=== PATIENT | male | born 1955 | race Caucasian/White ===

== ENCOUNTER → 2022-06-12 12:05 | Outpatient (CLI) | payer MEDICARE, SELFPAY ==
[2022-06-12 13:31] LABS: Basophils # 0.2 K/mm3 (0-0.2); Eosinophils # 0.1 K/mm3 (0.0-0.4); Eosinophils % 0.4 % (0.1-12.0); Hematocrit 46.6 % (42.0-52.0); Hemoglobin 15.7 g/dL (14.1-18.0); Lymphocytes # 19.8 K/mm3 (0.7-4.5); Lymphocytes % 77.6 % (10-50); Mean Corpuscular HGB Conc 33.6 g/dL (31.8-35.4); Mean Corpuscular Hemoglobin 29.8 pg (27.0-31.2); Mean Corpuscular Volume 88.5 fl (80-94); Mean Platelet Volume 8.1 fl (7.4-10.4); Monocytes # 0.4 K/mm3 (0.1-1.0); Monocytes % 1.6 % (1.7-9.3); Neutrophils % 19.4 % (37.0-80.0); Platelet Count 210 K/mm3 (142-424); Red Blood Count 5.27 M/mm3 (4.60-6.20)
[2022-06-12 13:34] LABS: MANUAL DIFFERENTIAL MANUAL DIFFERENTIAL (MANUAL DIFF)
[2022-06-12 13:56] LABS: White Blood Count 25.8 K/mm3 (4.8-10.8)
[2022-06-12 15:05] LABS: Lymphocytes % 75 % (10-50); Monocytes % 3 % (2-9); Neutrophils % 22 % (42-76); Total Cells Counted 100
[2022-06-12 15:06] LABS: RBC Morphology Normal
[2022-06-12 15:07] LABS: Platelet Estimate Normal
[2022-06-14 12:20] LABS: Peripheral Smear Review Scanned Result
== END ==
PROVIDERS: Nurse Practitioner Family
DX: D72.829 Elevated white blood cell count, unspecified (principal)
CPT/HCPCS: 36415; 85007; 85025

== ENCOUNTER 2023-08-27 13:50 | Emergency (ER) | payer MEDICARE, SELFPAY ==
[2023-08-27 13:51] VITALS: BP 146/90; PULSE 104; RESP 20; TEMP 37.5; O2SAT 99; BMI 41.3
[2023-08-27 13:58] VITALS: BP 146/90; PULSE 105; O2SAT 96
[2023-08-27 14:01] VITALS: BP 140/92; PULSE 107; O2SAT 96
--- NOTE | 2023-08-27 14:21 | ECG_ITS ---
APPROVED REPORT Exam: Resting ECG HR:98 bpm ECG Measurements Heart Rate 98 AXES TX 145 P 52 QRSd 83 QRS 49 QT 299 T 74 QTc 355 Conclusion SINUS RHYTHM WITH OCCASIONAL SUPRAVENTRICULAR PREMATURE COMPLEXES NONSPECIFIC T-WAVE ABNORMALITY BORDERLINE ECG Electronically signed by : SUHAIL MARSH, 08/27/2023 15:18:14
--- NOTE | 2023-08-27 14:23 | ED_ITS ---
Discharge Plan Disposition Patient Disposition: Home, Self-Care Prescriptions Prescriptions: New doxycycline hyclate 100 mg capsule 100 mg PO BID 10 Days Qty: 20 0RF Referrals Follow up/Referrals: Provider,Referral, [Primary Care Provider] - See instructions Activity Restrictions/Add. Instructions Additional Instructions/Restrictions: At this time it was felt you are safe to be discharged home. If new or worsening symptoms please do not hesitate to return the emergency department. Please take your antibiotics as prescribed and follow-up with your family doctor within 1 week for repeat labs. Your platelets (the way of blood clots) as well as your sodium were little bit low today, not dangerously low. Clinical Impressions Clinical Impression: Acute Lyme disease, Thrombocytopenia, Hyponatremia Instructions Patient Instructions: DI for Skin Abscess Discharge ED Provider: Huy Venegas General Adult HPI <Carlos Alberto Dupont MD - Last Filed: 08/27/23 15:10> General Chief complaint: Skin/Abscess/Foreign Body Stated complaint: fever, body aches, possible spider bite on rt leg Time Seen by Provider: 08/27/23 14:01 Mode of Arrival: Ambulatory Source of Information: Patient and Spouse Limitations: No Limitations Description of Symptoms (Recalled from ER Triage Doc. by RN): POSSIBLE TICK BITE,FEVER,BODY ACHES History of Present Illness HPI narrative: Patient is a 68-year-old male with chronic leukemia who presents emergency department for multiple complaints after a tick bite. Patient removed a tick from his right lateral thigh which was attached for an unknown duration approximately a week ago. He has had a target-like rash over his right lateral thigh since, diffuse myalgias, arthralgias, holocranial headache, fever Tmax 103 at home causing her to present here for continued evaluation. No chest pain reported. Related Data Previous Rx's Medication Instructions Recorded doxycycline hyclate 100 mg capsule 100 mg PO BID Lyme Disease 10 days 08/27/23 #20 caps Allergies Allergy/AdvReac Type Severity Reaction Status Date / Time Penicillins Allergy Verified 08/27/23 14:06 [facility] <Carlos Alberto Dupont MD - Last Filed: 08/27/23 15:10> [facility] Disclaimer: The information contained in this section may have been updated after the patient was seen, as this information can be updated by other users. Social History (Updated 08/27/23 @ 15:10 by Carlos Alberto Dupont MD) Smoking Status: Never smoker alcohol intake: never current occupational status: other Travel in the last 8 weeks: None <Carlos Alberto Dupont MD - Last Filed: 08/27/23 15:10> ROS Obtained: Yes Systems reviewed as appropriate & no additional complaints except as documented Physical Exam <Carlos Alberto Dupont MD - Last Filed: 08/27/23 15:10> General General appearance: alert and in no apparent distress Head Head exam: atraumatic and normocephalic Eye Eye exam: Present PERRL ENT ENT exam: Present mucous membranes moist Neck Neck exam: Present normal inspection Chest Chest inspection: Present normal inspection and symmetric chest wall rise Respiratory Respiratory exam: Present normal lung sounds bilaterally; Absent respiratory distress Cardiovascular Cardiovascular exam: Present regular rate and normal rhythm Abdominal Exam Abdominal exam: Present soft; Absent tenderness Extremities Exam Extremities exam: Present other (Annular rash right lateral thigh) Neurological Exam Neurological exam: Present alert Psychiatric Psychiatric exam: Present normal affect Skin Skin exam: Present warm and dry Medical Decision Making <Carlos Alberto Dupont MD - Last Filed: 08/27/23 15:10> Dylan Inquiry Pt receiving controlled substance: No Vital Signs: 08/27/23 13:51 08/27/23 13:58 08/27/23 14:01 Temperature 99.5 F Temperature Source Oral Pulse Rate 105 H 107 H Pulse Rate [Right] 104 H Respiratory Rate 20 Blood Pressure 146/90 H 140/92 H Blood Pressure [Right Arm] 146/90 H Blood Pressure Mean [Right Arm] 108 02 Sat by Pulse Oximetry 99 96 96 Lab Data Lab Results 08/27/23 14:07: WBC 13.1 H, RBC 3.99 L, Hgb 12.4 L, Hct 37.0 L, MCV 92.8, MCH 31.0, MCHC 33.4, RDW 16.0, Plt Count 104 L, MPV 8.8, Neut % (Auto) 13.5 L, Lymph % (Auto) 84.9 H, Henderson % (Auto) 0.6 L, Eos % (Auto) 0.1, Baso % (Auto) 0.9, Neut # (Auto) 1.8, Lymph # (Auto) 11.1 H, Henderson # (Auto) 0.1, Eos # (Auto) 0.0, Baso # (Auto) 0.1, Total Counted 100, Neutrophils % (Manual) 7 L, Band Neutrophils % 2.0, Lymphocytes % (Manual) 78 H, Atypical Lymphs % 8.0, Monocytes % (Manual) 3, Blast Cells % 2.0, Platelet Estimate Moderate decrease, RBC Morphology Normal, S odium 133 L, Potassium 4.2, Chloride 101, Carbon Dioxide 29, Anion Gap 7.2, BUN 17, Creatinine 0.90, Estimated Creat Clear 72, Estimated GFR 84, Est GFR ( Amer) 102, Glucose 123 H, Calcium 8.7, Total Bilirubin 0.6, AST 65 H, ALT 63, Alkaline Phosphatase 52, Total Creatine Kinase 109, Troponin I 0.02, Total Protein 6.6, Albumin 3.8, Globulin 2.8, Albumin/Globulin Ratio 1.4 08/27/23 14:07 08/27/23 14:07 Orders (Tests/Meds): ED MEDICATIONS Discontinued Medications Generic Name Dose Route Start Last Admin Trade Name Freq PRN Reason Stop Dose Admin Hydrocodone Bitart/Acetaminophen 1 tab 08/27/23 14:19 08/27/23 14:30 Apap/Hydrocodone 325mg/7.5mg Tab PO 08/27/23 14:20 1 tab ONCE ONE Administration Doxycycline Hyclate 100 mg/ 250 mls @ 166.667 mls/hr 08/27/23 14:17 08/27/23 14:30 Sodium Chloride IV 08/27/23 14:18 166.667 mls/hr ONCE ONE Administration Lactated Ringer's 1,000 mls @ 999 mls/hr 08/27/23 14:19 08/27/23 14:30 Lactated Ringer's 1000 Ml Bag IV 08/27/23 15:19 999 mls/hr .Q1H1M ONE Administration Ketorolac Tromethamine 30 mg 08/27/23 14:19 08/27/23 14:30 Ketorolac 30mg/Ml Vial IV 08/27/23 14:20 30 mg ONCE ONE Administration ORDERS Category Date Time Status CBC w/Auto Diff [Complete Blood Count Auto Diff] Stat Lab 08/27/23 14:07 Results CK [Creatine Kinase] Stat Lab 08/27/23 14:07 Completed CMP [Comprehensive Metabolic Panel] Stat Lab 08/27/23 14:07 Completed Lyme Ab, Modified 2-Tier Stat Lab 08/27/23 14:07 Received Lyme B. burgdorferi PCR Blood Stat Lab 08/27/23 14:07 Received Peripheral Smear Review Stat Lab 08/27/23 14:07 Results Trop I [Troponin I] Stat Lab 08/27/23 14:07 Completed Troponin I Q3H Lab 08/27/23 18:15 Ordered Troponin I Q3H Lab 08/27/23 21:15 Ordered ECG Data Tracing #1: Independently interpreted by me rate is 98, rhythm is irregular, sinus arrhythmia, QTc 355, no ST elevation in anatomical contiguous leads, no high degree AV block. Medical Decision Narrative: In summary patient is a 68-year-old male with a history of chronic leukemia presents emergency department for evaluation of myalgias, arthralgias, headache in the setting of tick bite. Patient is annular rash and clinical symptoms are consistent with Lyme disease. Workup will be conducted with hematologic labs, Lyme disease and tickborne illness send outs will be conducted. Patient will be empirically treated with doxycycline. Crystalloid bolus will be administered. EKG will be obtained. CT imaging of the head was considered however he has nonfocal neurologic exam and Lyme disease easily explains his holocranial headache therefore will be deferred. Initial interventions also include Toradol, home dose [place]. Initial workup reviewed by me, patient actually has improved leukocytosis in the setting of his leukemia, thrombocytopenia platelet count 104 down from 210 that is nonactionable, no EDI or critical electrolyte abnormalities, mild hyponatremia. Troponin repeat evaluation pending at time of transfer of care to the oncoming physician, Dr. Venegas. <Huy Venegas MD - Last Filed: 08/27/23 16:14> Vital Signs: 08/27/23 13:51 08/27/23 13:58 08/27/23 14:01 Temperature 99.5 F Temperature Source Oral Pulse Rate 105 H 107 H Pulse Rate [Right] 104 H Respiratory Rate 20 Blood Pressure 146/90 H 140/92 H Blood Pressure [Right Arm] 146/90 H Blood Pressure Mean [Right Arm] 108 02 Sat by Pulse Oximetry 99 96 96 Lab Data Lab Results 08/27/23 14:07: WBC 13.1 H, RBC 3.99 L, Hgb 12.4 L, Hct 37.0 L, MCV 92.8, MCH 31.0, MCHC 33.4, RDW 16.0, Plt Count 104 L, MPV 8.8, Neut % (Auto) 13.5 L, Lymph % (Auto) 84.9 H, Henderson % (Auto) 0.6 L, Eos % (Auto) 0.1, Baso % (Auto) 0.9, Neut # (Auto) 1.8, Lymph # (Auto) 11.1 H, Henderson # (Auto) 0.1, Eos # (Auto) 0.0, Baso # (Auto) 0.1, Total Counted 100, Neutrophils % (Manual) 7 L, Band Neutrophils % 2.0, Lymphocytes % (Manual) 78 H, Atypical Lymphs % 8.0, Monocytes % (Manual) 3, Blast Cells % 2.0, Platelet Estimate Moderate decrease, RBC Morphology Normal, S odium 133 L, Potassium 4.2, Chloride 101, Carbon Dioxide 29, Anion Gap 7.2, BUN 17, Creatinine 0.90, Estimated Creat Clear 72, Estimated GFR 84, Est GFR ( Amer) 102, Glucose 123 H, Calcium 8.7, Total Bilirubin 0.6, AST 65 H, ALT 63, Alkaline Phosphatase 52, Total Creatine Kinase 109, Troponin I 0.02, Total Protein 6.6, Albumin 3.8, Globulin 2.8, Albumin/Globulin Ratio 1.4 Orders (Tests/Meds): ED MEDICATIONS Discontinued Medications Generic Name Dose Route Start Last Admin Trade Name Freq PRN Reason Stop Dose Admin Hydrocodone Bitart/Acetaminophen 1 tab 08/27/23 14:19 08/27/23 14:30 Apap/Hydrocodone 325mg/7.5mg Tab PO 08/27/23 14:20 1 tab ONCE ONE Administration Doxycycline Hyclate 100 mg/ 250 mls @ 166.667 mls/hr 08/27/23 14:17 08/27/23 14:30 Sodium Chloride IV 08/27/23 14:18 166.667 mls/hr ONCE ONE Administration Lactated Ringer's 1,000 mls @ 999 mls/hr 08/27/23 14:19 08/27/23 14:30 Lactated Ringer's 1000 Ml Bag IV 08/27/23 15:19 999 mls/hr .Q1H1M ONE Administration Ketorolac Tromethamine 30 mg 08/27/23 14:19 08/27/23 14:30 Ketorolac 30mg/Ml Vial IV 08/27/23 14:20 30 mg ONCE ONE Administration ORDERS Category Date Time Status CBC w/Auto Diff [Complete Blood Count Auto Diff] Stat Lab 08/27/23 14:07 Results CK [Creatine Kinase] Stat Lab 08/27/23 14:07 Completed CMP [Comprehensive Metabolic Panel] Stat Lab 08/27/23 14:07 Completed Lyme Ab, Modified 2-Tier Stat Lab 08/27/23 14:07 Received Lyme B. burgdorferi PCR Blood Stat Lab 08/27/23 14:07 Received Peripheral Smear Review Stat Lab 08/27/23 14:07 Results Trop I [Troponin I] Stat Lab 08/27/23 14:07 Completed Troponin I Q3H Lab 08/27/23 18:15 Ordered Troponin I Q3H Lab 08/27/23 21:15 Ordered Medical Decision Narrative: In summary patient is a 68-year-old male with a history of chronic leukemia presents emergency department for evaluation of myalgias, arthralgias, headache in the setting of tick bite. Patient is annular rash and clinical symptoms are consistent with Lyme disease. Workup will be conducted with hematologic labs, Lyme disease and tickborne illness send outs will be conducted. Patient will be empirically treated with doxycycline. Crystalloid bolus will be administered. EKG will be obtained. CT imaging of the head was considered however he has nonfocal neurologic exam and Lyme disease easily explains his holocranial headache therefore will be deferred. Initial interventions also include Toradol, home dose [place]. Initial workup reviewed by me, patient actually has improved leukocytosis in the setting of his leukemia, thrombocytopenia platelet count 104 down from 210 that is nonactionable, no EDI or critical electrolyte abnormalities, mild hyponatremia. Troponin repeat evaluation pending at time of transfer of care to the oncoming physician, Dr. Venegas. Rubi: I assumed primary responsibility for this patient after signout from previous physician. Independent of additional workup demonstrates pancytopenia down from patient's normal, relative lymphocytosis consistent with tickborne disease. Patient's electrolytes consistent with mild hyponatremia, but otherwise normal. Troponin negative. LFTs normal. On reevaluation, patient tolerating p.o. intake, states he feels better, doxycycline has been administered. Recommended that he follow-up with his family doctor regarding this visit and need for repeat labs including CBC and chemistry. Because patient at baseline without signs or symptoms of clinical decompensation, deemed appropriate for discharge. Results were relayed to patient who voiced understanding and were agreeable to outpatient management and follow up. I discussed my clinical impression with patient and answered all questions. At this time, the evidence for any other entities in the differential is insufficient to warrant any further testing or ED observation. This was explained as well. Advisory was given that persistent or worsening symptoms require further evaluation. I confirmed the understanding of this discussion. Critical Care <Carlos Alberto Dupont MD - Last Filed: 08/27/23 15:10> Critical Care Time Critical Care Time: No
[2023-08-27] MEDS: LACTATED RINGERS 1000ML 1,000 ML 999 ML IV (14:30)
[2023-08-27] MEDS: DOXYCYCLINE HYCLATE 100 MG in 0.9 % SODIUM CHLORIDE 250 ML 166.667 MG IV (14:30)
[2023-08-27] MEDS: APAP/HYDROCODONE 325MG/7.5MG TAB 1 TAB PO (14:30)
[2023-08-27] MEDS: KETOROLAC 30MG/ML VIAL 30 MG IV (14:30)
[2023-08-27 14:33] LABS: Chloride 101 mmol/L (98-107)
[2023-08-27 14:34] LABS: Potassium 4.2 mmoL/L (3.5-5.1); Sodium 133 mmol/L (136-145)
[2023-08-27 14:36] LABS: Alanine Aminotransferase 63 U/L (12-78); Aspartate Amino Transferase 65 U/L (17-59); Bilirubin,Total 0.6 mg/dl (0.2-1.3); Blood Urea Nitrogen 17 mg/dl (9-20); Creatinine Clearance Estimated 72 mL/min (50-200); Estimated Glomerular Filt Rate 84 ml/min (>60); GFR (African American) 102 ML/MIN (>60)
[2023-08-27 14:37] LABS: Albumin Level 3.8 g/dl (3.5-5.0); Albumin/Globulin Ratio 1.4 (1.1-1.8); Alkaline Phosphatase 52 U/L (38-126); Anion Gap 7.2 mEq/L (5-15); Calcium 8.7 mg/dl (8.4-10.2); Carbon Dioxide 29 mmol/L (22.0-30.0); Creatine Kinase 109 U/L (55-170); Globulin 2.8 g/dL (1.3-3.2); Glucose 123 mg/dl (74-100); Total Protein,Serum 6.6 g/dl (6.3-8.2)
[2023-08-27 14:44] LABS: Basophils # 0.1 K/mm3 (0-0.2); Basophils % 0.9 % (0.1-2.0); Eosinophils % 0.1 % (0.1-12.0); Hemoglobin 12.4 g/dL (14.1-18.0); Lymphocytes # 11.1 K/mm3 (0.7-4.5); Lymphocytes % 84.9 % (10-50); Mean Corpuscular HGB Conc 33.4 g/dL (31.8-35.4); Mean Corpuscular Volume 92.8 fl (80-94); Mean Platelet Volume 8.8 fl (7.4-10.4); Monocytes # 0.1 K/mm3 (0.1-1.0); Monocytes % 0.6 % (1.7-9.3); Neutrophils # 1.8 K/mm3 (1.8-7.8); Platelet Count 104 K/mm3 (142-424); Red Blood Count 3.99 M/mm3 (4.60-6.20); White Blood Count 13.1 K/mm3 (4.8-10.8)
[2023-08-27 14:51] LABS: MANUAL DIFFERENTIAL MANUAL DIFFERENTIAL (MANUAL DIFF); Neutrophils % 13.5 % (37.0-80.0)
[2023-08-27 15:16] LABS: Lymphocytes % 78 % (10-50); Monocytes % 3 % (2-9); Neutrophils % 7 % (42-76); Total Cells Counted 100
[2023-08-27 15:17] LABS: Platelet Estimate Moderate Decrease; RBC Morphology Normal
[2023-08-27 15:27] LABS: Troponin I 0.02 ng/ml (0.00-0.034)
--- NOTE | 2023-08-27 16:01 | PC.NURSE ---
DR MORFIN AT BEDSIDE
[2023-08-27 16:19] VITALS: BP 140/92; PULSE 107; RESP 16; TEMP 37.5; O2SAT 96
[2023-08-29 11:58] LABS: Lyme Ab CIA Negative (Negative)
[2023-08-29 14:26] LABS: Peripheral Smear Review Scanned Result
[2023-09-01 10:13] LABS: Lyme B. burgdorferi PCR Blood Negative (Negative)
[2023-09-02 08:30] LABS: Miscellaneous Test SCANNED IMAGE
== END 2023-08-27 16:20 | disposition home or self-care (01) ==
PROVIDERS: Emergency Medicine; Emergency Provider Emergency Medicine
DX: A69.20 Lyme disease, unspecified (principal); E87.1 Hypo-osmolality and hyponatremia; D69.6 Thrombocytopenia, unspecified
CPT/HCPCS: 80053; 82550; 84484; 85007; 85025; 85027; 85060; 87476; 93005; 96361; 96374; 96375; 99284; J1885; J7120

== ENCOUNTER 2024-01-18 11:42 | Outpatient (CLI) | payer MEDICARE, SELFPAY ==
[2024-01-18 12:34] LABS: Chloride 104 mmol/L (98-107); Sodium 137 mmol/L (136-145)
[2024-01-18 12:35] LABS: Potassium 4.8 mmoL/L (3.5-5.1)
[2024-01-18 12:38] LABS: Anion Gap 11.8 mEq/L (5-15); Blood Urea Nitrogen 15 mg/dl (9-20); Carbon Dioxide 26 mmol/L (22.0-30.0); Estimated Glomerular Filt Rate 96 ml/min (>60); GFR (African American) 117 ML/MIN (>60); Glucose 94 mg/dl (74-100)
== END 2024-01-18 23:59 | disposition home or self-care (01) ==
PROVIDERS: Visit Provider Internal Medicine
DX: E87.5 Hyperkalemia (principal)
CPT/HCPCS: 36415; 80048

== ENCOUNTER 2024-09-09 14:07 | Outpatient (CLI) | payer MEDICARE, SELFPAY ==
[2024-09-09 15:07] LABS: Hematocrit 33.9 % (42.0-52.0); Hemoglobin 10.3 g/dL (14.1-18.0); Immature Granulocytes % 0.1 %; Mean Corpuscular HGB Conc 30.4 g/dL (31.8-35.4); Mean Corpuscular Hemoglobin 30.0 pg (27.0-31.2); Mean Corpuscular Volume 98.8 fl (80-94); Nucleated Red Blood Cells % 0 %; Platelet Count 108 K/mm3 (142-424); Red Blood Count 3.43 M/mm3 (4.60-6.20); Red Cell Distribution Width-SD 64.4 fL
[2024-09-09 15:20] LABS: White Blood Count 56.0 K/mm3 (4.8-10.8)
[2024-09-09 15:57] LABS: Alanine Aminotransferase 15 U/L (12-78); Albumin Level 4.0 g/dl (3.5-5.0); Albumin/Globulin Ratio 2.2 (1.1-1.8); Alkaline Phosphatase 59 U/L (38-126); Anion Gap 10.0 mEq/L (5-15); Aspartate Amino Transferase 17 U/L (17-59); Bilirubin,Total 0.4 mg/dl (0.2-1.3); Blood Urea Nitrogen 16 mg/dl (9-20); Calcium 8.9 mg/dl (8.4-10.2); Carbon Dioxide 28 mmol/L (22.0-30.0); Chloride 105 mmol/L (98-107); Creatinine,Serum 0.90 mg/dl (0.66-1.25); Estimated Glomerular Filt Rate 84 ml/min (>60); GFR (African American) 102 ML/MIN (>60); Globulin 1.8 g/dL (1.3-3.2); Glucose 97 mg/dl (74-100); Potassium 4.0 mmoL/L (3.5-5.1); Sodium 139 mmol/L (136-145); Total Protein,Serum 5.8 g/dl (6.3-8.2)
[2024-09-09 16:55] LABS: Total Cells Counted 100
[2024-09-09 16:58] LABS: Hypochromasia 2+; Stomatocytes 1+
== END 2024-09-09 23:59 | disposition home or self-care (01) ==
LOC: LAB 14:13
PROVIDERS: Visit Provider Internal Medicine
DX: C91.10 Chronic lymphocytic leukemia of B-cell type not having achieved remission (principal)
CPT/HCPCS: 36415; 80053; 83615; 85007; 85025; 85027

== ENCOUNTER 2024-10-19 16:31 | Outpatient (CLI) | payer MEDICARE, SELFPAY ==
--- OUTSIDE RECORDS SUMMARY | 2024-10-19 16:37 | XMS_ITS | Patient Health Record ---
Author Organization [facility] Address [address] [place] [address] [address] [place] [address] Care Team Providers Care Sample Dye Mixer Name Role Phone Hailee Rios Primary Care Provider Allergies Allergen (clinical drug ingredient) Drug/Non Drug Allergy documented on EMR Reaction Allergy Type Onset Date Status Penicillin rash Drug Allergy Active Reason For Referral No Information Medications Medication SIG (Take, Route, Frequency, Duration) Notes Start Date End Date Status Vitamin D (Ergocalciferol) 1.25 MG (14822 UT) 1 capsule Orally once a week; Duration: 90 days Active Flomax 0.4 MG 1 capsule Orally Onc e a day; Duration: 90 days 06/12/2022 Active traZODone HCl 100 MG 1 tablet Orally Onc e a day; Duration: 90 days Active Losartan Potassium 100 MG TAKE 1 TABLET BY MOUTH ONCE DAILY FOR BLOOD PRESSURE AND/OR HEART Orally Once a day; Duration: 90 days Active CeleXA 20 MG TAKE ONE TABLET BY M OUTH EVERY DAY Orally Once a day; Duration: 90 days Active Norvasc 10 MG TAKE 1 TABLET BY SOL TH ONCE DAILY FOR BLOOD PRESSURE AND/OR HEART Orally Once a day; Duration: 90 days Active Trelegy Ellipta 100-62.5-25 MCG/INH 1 puff Inhalation Once a day 01/24/2020 Active Proctofoam 1 % 1application Rectal bid Active Triamcinolone Acetonide 40 MG/ML 1 ml Injection Once a day; Duration: 1 days Active Potassium Chloride ER 20 MEQ 1 tablet with food Orally Once a day; Duration: 7 days 10/03/2022 Active Ketorolac Tromethamine 60 MG/2ML 2 ml Intramuscular once; Duration: 1 days Active Lasix 40 MG 1 tablet take with 2 0 meq KCL daily x 7 days Orally Once a day; Duration: 7 days 10/03/2022 Active Diclofenac Sodium 1 % as directed Data Technician ally on knees and elbows prn Four times a day; Duration: 30 days 10/03/2022 Active Meloxicam 7.5 MG 1 tablet Orally Once a day; Duration: 30 day(s) 10/03/2022 Active Tylenol 1 tab Oral q 4-6 hrs prn Active Vitamin D (Ergocalciferol) 1.25 MG (69247 UT) TAKE ONE CAPSULE BY MOUTH ONCE A WEEK Orally weekly; Duration: 84 days Active Immunizations Vaccine Route Administration Date Status Comme nts Afluria ^4 IM Intramuscular 01/23/2020 Administered FLU AD 65+ IM Intramuscular 12/20/2021 Administered Fluzone IM Intramuscular 02/14/2021 Administered Problems Problem Type SNOMED Code ICD Code Onset Dates Problem Status W/U Status Risk Notes Problem Leukocytosis (400894144) Elevated white blood cell count, unspecified (D72.829) Active confirmed Problem Vitamin D deficiency (90833946) Vitamin D deficiency, unspecified (E55.9) Active confirmed Problem Hyperlipidemia (05928736) Hyperlipidemia, unspecified (E78.5) Active confirmed Problem Essential hypertension (10957586) Essential (primary) hypertension (I10) Active confirmed Problem Allergic rhinitis (23052522) Allergic rhinitis, unspecified (J30.9) Active confirmed Problem Chronic obstructive pulmonary disease (29581316) Chronic obstructive pulmonary disease, unspecified (J44.9) Active confirmed Problem Somnolence (10393852) Somnolence (R40.0) Active confirmed Problem Anxiety (05887643) Anxiety (F41.9) Active confi rmed Problem Leukocytosis (312231143) Leukocytosis, unspecified type (D72.829) Active confirmed Plan Of Treatment Pending Test Test Name Order Date Vitamin B12 10/02/2022 Vitamin B12 07/01/2022 Lipids, Total, Serum 05/04/2015 Lipids, Total, Serum 02/12/2015 Lipids, Total, Serum 06/17/2016 Lipids, Total, Serum 06/09/2018 Lipids, Total, Serum 02/18/2019 Lipids, Total, Serum 10/14/2016 Lipid Panel 10/02/2022 Lipid Panel 07/01/2022 Comp. Metabolic Panel (14) 12/20/2021 Liver Function Test (LFT) 08/24/2017 Liver Function Test (LFT) 02/12/2015 Liver Function Test (LFT) 05/04/2015 CBC With Differential/Platelet 5 CBC With Differential/Platelet 0 TSH+Free T4 10/02/2022 TSH+Free T4 07/01/2022 Lipid Panel 12/16/2019 Comp. Metabolic Panel (14) 12/16/2019 PSA Total+ Free 12/16/2019 Basic Metabolic Panel (7) 11/01/2014 Basic Metabolic Panel (7) 02/12/2015 Basic Metabolic Panel (7) 05/04/2015 Thyroid Peroxidase (TPO) Ab 10/02/2022 Peripheral Smear 06/11/2022 COMP Metabolic Panel 02/18/2019 COMP Metabolic Panel 08/24/2017 Rocephin Injection 08/24/2017 Kenalog Injection 10/02/2022 Kenalog Injection 07/01/2022 Toradol Injection 07/01/2022 Toradol Injection 10/02/2022 Vitamin -D 25-hidroxy 10/02/2022 Vitamin -D 25-hidroxy 07/01/2022 Liver Function Test 06/17/2016 BASIC METABOLIC PANEL 06/17/2016 COMPREHENSIVE METABOLIC PANEL 06/09/2018 COMPREHENSIVE METABOLIC PANEL 10/14/2016 CBC (H/H, RBC, INDICES, WBC, PLT) 2016 CBC (H/H, RBC, INDICES, WBC, PLT) 2018 CBC (H/H, RBC, INDICES, WBC, PLT) 2018 CBC (H/H, RBC, INDICES, WBC, PLT) 2018 CBC (H/H, RBC, INDICES, WBC, PLT) 2017 CBC (H/H, RBC, INDICES, WBC, PLT) 2016 T3, FREE 07/01/2022 T3, FREE 10/02/2022 CBC (INCLUDES DIFF/PLT) 05/04/2015 LIPID PANEL 08/24/2017 IRON, TIBC AND FERRITIN PANEL 10/02/2022 CBC w/DIFF 10/02/2022 CBC w/DIFF 07/01/2022 CBC w/DIFF 06/11/2022 CBC With Platelet And Differential 12/20 Iron with Transferrin Saturation 023 Lipid Panel 12/20/2021 TSH 12/20/2021 Vitamin D 25-Hydroxy 12/20/2021 CMP 10/02/2022 CMP 07/01/2022 Insurance Providers Payer Name Payer Address Payer Phone Subscriber Number Group Number Insured Name Patient Relationship to Insured Coverage Start Date Coverage End Date Clarisse [facility] [address] [place] [phone] [id number] Jourdan Sawant Self - patient is the insured Medicare RHC [address] [place] [address] [phone] [id number] Jourdan Sawant Self - patient is the insured Medical (General) History Medical History History ICD Code hyperlipidemia shoulder pain degeneration of lumbar intervertebral di sc copd depressive disorder hypertension sleep apnea
[2024-10-19 17:39] LABS: Hematocrit 35.6 % (42.0-52.0); Hemoglobin 11.0 g/dL (14.1-18.0); Immature Granulocytes % 0.1 %; Mean Corpuscular HGB Conc 30.9 g/dL (31.8-35.4); Mean Corpuscular Hemoglobin 30.0 pg (27.0-31.2); Mean Corpuscular Volume 97.0 fl (80-94); Nucleated Red Blood Cells % 0 %; Platelet Count 112 K/mm3 (142-424); Red Blood Count 3.67 M/mm3 (4.60-6.20); Red Cell Distribution Width-SD 57.1 fL
[2024-10-19 18:12] LABS: White Blood Count 48.6 K/mm3 (4.8-10.8)
[2024-10-19 18:20] LABS: Chloride 108 mmol/L (98-107)
[2024-10-19 18:21] LABS: Albumin Level 4.1 g/dl (3.5-5.0); Potassium 4.2 mmoL/L (3.5-5.1); Sodium 140 mmol/L (136-145)
[2024-10-19 18:23] LABS: Alanine Aminotransferase 22 U/L (12-78); Albumin/Globulin Ratio 2.2 (1.1-1.8); Alkaline Phosphatase 53 U/L (38-126); Anion Gap 11.2 mEq/L (5-15); Aspartate Amino Transferase 24 U/L (17-59); Bilirubin,Total 0.4 mg/dl (0.2-1.3); Blood Urea Nitrogen 15 mg/dl (9-20); Carbon Dioxide 25 mmol/L (22.0-30.0); Creatinine,Serum 0.80 mg/dl (0.66-1.25); Estimated Glomerular Filt Rate 96 ml/min (>60); GFR (African American) 116 ML/MIN (>60); Globulin 1.9 g/dL (1.3-3.2); Total Protein,Serum 6.0 g/dl (6.3-8.2)
[2024-10-19 18:24] LABS: Calcium 8.7 mg/dl (8.4-10.2); Glucose 127 mg/dl (74-100)
[2024-10-19 18:25] LABS: RBC Morphology Normal
[2024-10-19 18:26] LABS: Total Cells Counted 100
--- NOTE | 2024-10-19 19:03 | PC.NURSE ---
outpatient labs ordered by Mary Jane Whitney DO has Critical WBC of 48.6. Multiple attempts were made without success. Information passed on from previous shift. Call [facility] spoke with housekeeper and laundry assistant Milagros Peña, stated that she would attempt to contact Mary Jane Whitney with results.
== END 2024-10-19 23:59 | disposition home or self-care (01) ==
PROVIDERS: Visit Provider Internal Medicine
DX: C91.10 Chronic lymphocytic leukemia of B-cell type not having achieved remission (principal)
CPT/HCPCS: 36415; 80053; 85007; 85025

== ENCOUNTER 2025-01-10 16:15 | Emergency (ER) | payer MEDICARE, SELFPAY ==
[2025-01-10] VITALS (7 sets, daily range): BP systolic 120–139; BP diastolic 78–89; PULSE 90–98; RESP 14–17; TEMP 37.1; O2SAT 92–96; BMI 41.3
--- NOTE | 2025-01-10 16:46 | XR_ITS ---
PROCEDURE INFORMATION: Exam: XR Right Foot Exam date and time: 01/10/2025 5:17 PM Age: 69 years old Clinical indication: Injury or trauma; Fall; Blunt trauma; Foot; Right; Additional info: Swelling bruidsing infection minor trauma TECHNIQUE: Imaging protocol: Radiologic exam of the right foot. Views: 3 or more views. COMPARISON: CR XR TIBIA FIBULA RT 2V 01/10/2025 5:17 PM FINDINGS: Bones/joints: Normal. No acute fracture identified. Soft tissues: Normal. IMPRESSION: No acute findings.
--- NOTE | 2025-01-10 16:46 | XR_ITS ---
PROCEDURE INFORMATION: Exam: XR Right Tibia and Fibula Exam date and time: 01/10/2025 5:17 PM Age: 69 years old Clinical indication: Swelling, leg or foot; Additional info: Swelling bruising infection minor trauma TECHNIQUE: Imaging protocol: Radiologic exam of the right tibia and fibula. Views: 2 views. COMPARISON: CR XR FOOT RT MIN 3V 01/10/2025 5:17 PM FINDINGS: Bones/joints: Normal. No acute fracture identified. Soft tissues: Normal. IMPRESSION: No acute findings.
--- NOTE | 2025-01-10 16:51 | CT_ITS ---
PROCEDURE INFORMATION: Exam: CT Right Lower Extremity With Contrast, Leg Exam date and time: 01/10/2025 5:18 PM Age: 69 years old Clinical indication: Swelling, leg or foot; Additional info: Scratch, bruising, infection TECHNIQUE: Imaging protocol: CT of the right lower extremity with intravenous contrast was performed. Exam focused on the lower leg. Radiation optimization: All CT scans at this facility use at least one of these dose optimization techniques: automated exposure control; mA and/or kV adjustment per patient size (includes targeted exams where dose is matched to clinical indication); or iterative reconstruction. Contrast material: ISOVUE; Contrast volume: 120 ml; Contrast route: IV; COMPARISON: CR XR TIBIA FIBULA RT 2V 01/10/2025 5:17 PM FINDINGS: Bones/joints: No acute fracture identified. No other acute bony abnormality. Soft tissues: A 3.2 x 1.3 x 3.1 cm focal relatively high dense collection with density of 68 noted within the subcutaneous fat tissue along the anterolateral distal aspect of the right lower leg 7 cm above the level of the ankle centered on axial image 167 of series 4 and coronal image 68 of series 1001. Associated curvilinear enhancing structure within the center of this high dense collection. Generalized soft tissue edema noted around the lower 2/3 of the right lower leg extending into the foot. No evident soft tissue air. IMPRESSION: 1. A 3.2 x 1.3 x 3.1 cm focal high dense collection with density of 68 noted within the subcutaneous fat tissue along the anterolateral distal aspect of the right lower leg. This may reflect a hematoma if this is the area of patient's injury. Associated curvilinear enhancing structure within the center of this high dense collection that might reflect a vascular structure but could also reflect a small area of active bleeding. 2. Superficial soft tissue edema around the right lower leg and foot that may be posttraumatic versus cellulitis.
--- NOTE | 2025-01-10 16:51 | CT_ITS ---
PROCEDURE INFORMATION: Exam: CT Right Lower Extremity With Contrast, Foot Exam date and time: 01/10/2025 5:18 PM Age: 69 years old Clinical indication: Swelling, leg or foot; Additional info: Scratch, bruising, concern infection, swelling TECHNIQUE: Imaging protocol: CT of the right lower extremity with intravenous contrast was performed. Exam focused on the foot. Radiation optimization: All CT scans at this facility use at least one of these dose optimization techniques: automated exposure control; mA and/or kV adjustment per patient size (includes targeted exams where dose is matched to clinical indication); or iterative reconstruction. Contrast material: ISOVUE; Contrast volume: 120 ml; Contrast route: IV; COMPARISON: CR XR FOOT RT MIN 3V 01/10/2025 5:17 PM FINDINGS: Bones/joints: Normal. No acute fracture or dislocation. Soft tissues: Soft tissue edema around the foot that may be posttraumatic versus cellulitis. No evident soft tissue air. IMPRESSION: Soft tissue edema around the foot that may be posttraumatic versus cellulitis. No acute bony abnormality.
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
--- NOTE | 2025-01-10 16:51 | CT_ITS ---
PROCEDURE INFORMATION: Exam: CT Right Lower Extremity With Contrast, Ankle Exam date and time: 01/10/2025 5:18 PM Age: 69 years old Clinical indication: Swelling, leg or foot; Additional info: Scratch, bruising, concern infection, swelling TECHNIQUE: Imaging protocol: CT of the right lower extremity with intravenous contrast was performed. Exam focused on the ankle. Radiation optimization: All CT scans at this facility use at least one of these dose optimization techniques: automated exposure control; mA and/or kV adjustment per patient size (includes targeted exams where dose is matched to clinical indication); or iterative reconstruction. Contrast material: ISOVUE; Contrast volume: 120 ml; Contrast route: IV; COMPARISON: CT ANKLE RT W CON 01/10/2025 5:18 PM FINDINGS: Bones/joints: No acute fracture identified. No other acute bony abnormality. Soft tissues: A 3.2 x 1.3 x 3.1 cm focal relatively high dense collection with density of 68 noted within the subcutaneous fat tissue along the anterolateral distal aspect of the right lower leg 7 cm above the level of the ankle centered on axial image 167 of series 4 and coronal image 68 of series 1001. Associated curvilinear enhancing structure within the center of this high dense collection. Generalized soft tissue edema noted around the lower 2/3 of the right lower leg extending into the foot. No evident soft tissue air. IMPRESSION: 1. A 3.2 x 1.3 x 3.1 cm focal high dense collection with density of 68 noted within the subcutaneous fat tissue along the anterolateral distal aspect of the right lower leg. This may reflect a hematoma if this is the area of patient's injury. Associated curvilinear enhancing structure within the center of this high dense collection that might reflect a vascular structure but could also reflect a small area of active bleeding. 2. Superficial soft tissue edema around the right lower leg and foot that may be posttraumatic versus cellulitis.
--- NOTE | 2025-01-10 17:10 | HMH.ITSTN ---
per Dr. Dupont proceed with IV contrast scans without labs.
[2025-01-10 17:18] LABS: Hematocrit 38.0 % (42.0-52.0); Hemoglobin 12.1 g/dL (14.1-18.0); Immature Granulocytes % 0.2 %; Mean Corpuscular HGB Conc 31.8 g/dL (31.8-35.4); Mean Corpuscular Hemoglobin 29.4 pg (27.0-31.2); Mean Corpuscular Volume 92.5 fl (80-94); Nucleated Red Blood Cells % 0 %; Platelet Count 177 K/mm3 (142-424); Red Blood Count 4.11 M/mm3 (4.60-6.20); Red Cell Distribution Width-SD 50.4 fL
[2025-01-10] MEDS: 0.9 % SODIUM CHLORIDE 50 ML VIAL IV (17:18)
[2025-01-10] MEDS: SODIUM CHLORIDE 0.9% 10ML SYR (RAD ONLY) 10 ML IV (17:18)
[2025-01-10] MEDS: IOPAMIDOL-370 (76%);100ML BOTTLE 120 ML IV (17:18)
[2025-01-10 17:25] LABS: White Blood Count 54.3 K/mm3 (4.8-10.8)
--- NOTE | 2025-01-10 17:26 | PC.NURSE ---
Stephanie arevalo critical on patient. At 1725 called for WBC of 54.3, was told to Dr Dupont right after call.
[2025-01-10] MEDS: METRONIDAZ/SOD CHL 500 MG/100 ML PIGGYBACK 100 MG IV (17:29)
[2025-01-10] MEDS: RINGERS SOLUTION,LACTATED 500 ML 999 ML IV (17:29)
[2025-01-10] MEDS: TET/DIPHTH/PERT-ADULT 0.5ML SYRINGE 0.5 ML IM (17:45)
[2025-01-10 17:59] LABS: INR 0.93 (0.9-1.1); Prothrombin Time 10.4 seconds (10.1-12.5); Total Cells Counted 100
[2025-01-10 18:00] LABS: Alanine Aminotransferase 27 U/L (12-78); Albumin Level 4.8 g/dl (3.5-5.0); Albumin/Globulin Ratio 1.9 (1.1-1.8); Alkaline Phosphatase 75 U/L (38-126); Anion Gap 10.1 mEq/L (5-15); Aspartate Amino Transferase 31 U/L (17-59); Bilirubin,Total 0.4 mg/dl (0.2-1.3); Blood Urea Nitrogen 24 mg/dl (9-20); Calcium 9.8 mg/dl (8.4-10.2); Carbon Dioxide 29 mmol/L (22.0-30.0); Chloride 98 mmol/L (98-107); Creatinine Clearance Estimated 71 mL/min (50-200); Creatinine,Serum 0.80 mg/dl (0.66-1.25); Estimated Glomerular Filt Rate 96 ml/min (>60); GFR (African American) 116 ML/MIN (>60); Globulin 2.5 g/dL (1.3-3.2); Glucose 108 mg/dl (74-100); Polychromasia 1+; Potassium 4.1 mmoL/L (3.5-5.1); Sodium 133 mmol/L (136-145); Total Protein,Serum 7.3 g/dl (6.3-8.2)
[2025-01-10 18:06] LABS: C-Reactive Protein 6.8 mg/L (0-4)
--- NOTE | 2025-01-10 18:09 | PC.NURSE ---
[facility] called speaking with Dr Dupont about this pt.
--- NOTE | 2025-01-10 18:14 | PC.NURSE ---
Called [facility] per Dr Dupont to see about getting this pt transferred to them for cellulitis in Right lower extremity and with infection. Images were powershared and [facility] was trying to make contact with the provider
[2025-01-10] MEDS: LEVOFLOXACIN/D5W 750 MG/150 ML 750 MG/150 ML PIGGYBACK 100 MG IV (18:15)
--- NOTE | 2025-01-10 18:16 | PC.NURSE ---
[facility] would have to call us back.
--- NOTE | 2025-01-10 18:39 | PC.NURSE ---
called back and is speaking with Dr Dupont at this time
[2025-01-10 18:48] LABS: Hepatitis C Ab Qual. W/ RFX NEGATIVE (Negative)
--- NOTE | 2025-01-10 18:53 | PC.NURSE ---
called back and Dr Nowak is speaking with Dr Dupont
[2025-01-10] MEDS: VANCOMYCIN HCL 2,500 MG in 0.9 % SODIUM CHLORIDE 500 ML 250 MG IV (19:44)
[2025-01-10] MEDS: VANCOMYCIN CONSULT REQUEST 1 EACH NOTAPPLIC (19:45)
--- NOTE | 2025-01-10 19:55 | PC.NURSE ---
Vanc started after levofloxacin completely infused.
== END 2025-01-10 20:46 | disposition short-term general hospital (02) ==
PROVIDERS: Emergency Provider Emergency Medicine
DX: S81.801A Unspecified open wound, right lower leg, initial encounter (principal); R22.41 Localized swelling, mass and lump, right lower limb; M79.661 Pain in right lower leg; Z85.6 Personal history of leukemia; W22.8XXA Striking against or struck by other objects, initial encounter; Z87.891 Personal history of nicotine dependence
CPT/HCPCS: 73590; 73630; 73701; 80053; 85007; 85025; 85027; 85610; 86140; 86803; 87040; 87389; 90471; 90715; 96365; 96366; 96375; 99285; J1836; J1956; J3373; J7040; J7120; Q9967